=== PATIENT | female | born 1990 | race African-American/Black ===

== ENCOUNTER 2018-02-01 14:26 | Emergency (ER) | payer SELFPAY ==
[~2018-02-01] VITALS: Ht 160 cm; Wt 132.0 kg
[2018-02-01 14:52] VITALS: BP 139/81
[2018-02-01] MEDS ORDERED: ACETAMINOPHEN 325MG TABLET PO ONE (17:45)
[2018-02-01] MEDS ORDERED: DEXAMETHASONE 10 MG/ML VIAL IM ONE (17:45)
== END 2018-02-01 18:43 | disposition home or self-care (01) ==
LOC: ER 14:26
DX: R13.10 Dysphagia, unspecified (principal); J02.9 Acute pharyngitis, unspecified
CPT/HCPCS: 96372; 99283; J1100

== ENCOUNTER 2020-09-14 20:23 | Emergency (ER) | payer MEDICAID ==
[~2020-09-14] VITALS: Ht 160 cm; Wt 120.0 kg
[2020-09-14 23:37] VITALS: BP 115/70
== END 2020-09-14 23:39 | disposition home or self-care (01) ==
LOC: ER 20:23
DX: U07.1 COVID-19 (principal)
CPT/HCPCS: 87426; 99283

== ENCOUNTER 2024-07-12 10:01 | Emergency (ER) | payer MEDICAID ==
[~2024-07-12] VITALS: Ht 167.6 cm; Wt 133.0 kg
[2024-07-12 10:05] VITALS: O2SAT 97
[2024-07-12] MEDS: MORPHINE SULFATE 4 MG/ML INJ (FOR IV/IM USE) IV ONE (10:45)
[2024-07-12] MEDS ORDERED: HYDR-4001 MT (11:18)
[2024-07-12] MEDS ORDERED: ONDA-239 PO (11:19)
[2024-07-12 11:50] VITALS: BP 106/67; PULSE 64; RESP 16; TEMP 36.9; O2SAT 100
== END 2024-07-12 11:50 | disposition home or self-care (01) ==
LOC: ER 10:01
DX: K42.9 Umbilical hernia without obstruction or gangrene (principal)
CPT/HCPCS: 99283; 96374; J2270